=== PATIENT | female | born 1960 | race African-American/Black ===

== ENCOUNTER 2018-07-27 13:15 | Emergency (ER) | payer SELFPAY ==
[2018-07-27 13:47] LABS: #Basophils 0.3 thou/uL (0.0-0.2); #Lymphocytes 1.9 thou/uL (1.20-3.40); #Monocytes 0.6 thou/uL (0.11-0.59); #Neutrophils 6.9 thou/uL (1.40-6.50); %Basophils 2.6 % (0.0-1.0); %Eosinophils 0.4 % (0.0-10.0); %Lymphocytes 19.6 % (21.0-51.0); %Monocytes 6.6 % (0.0-10.0); %Neutrophils 70.9 % (42.0-75.0); Hemoglobin 8.2 g/dL (12.0-16.0); Mean Corpuscular HGB CONC 33.5 g/dL (32.0-36.0); Mean Corpuscular Hemoglobin 25.7 pg (27.0-31.0); Mean Corpuscular Volume 76.7 fL (78.0-98.0); Mean Platelet Volume 6.1 fL (7.4-10.4); Platelet Count 371 thou/uL (130-400); Red Blood Cell (RBC) Count 3.17 mill/uL (4.20-5.40); White Blood Cell (WBC) Count 9.8 thou/uL (4.8-10.8)
[2018-07-27 14:00] LABS: ALT (SGPT) Less than 7 U/L (8-55); AST (SGOT) 15 U/L (5-34); Albumin 3.7 g/dL (3.5-5.0); Alcohol 22 mg/dL (Less than 10); Alkaline Phosphatase 111 U/L (40-150); Anion Gap 22 mmol/L (10-20); BUN (Urea Nitrogen) 8 mg/dL (9.8-20.1); Bilirubin, Total 0.9 mg/dL (0.2-1.2); Calc. Creatinine Clearance 0 mL/min (70-130); Calcium 10.5 mg/dL (7.8-10.44); Carbon Dioxide 19 mmol/L (22-29); Chloride 100 mmol/L (98-107); Estimated GFR-MDRD 88; Globulin 4.7 g/dL (2.4-3.5); Glucose 105 mg/dL (70-105); Potassium 3.2 mmol/L (3.5-5.1); Protein, Total 8.4 g/dL (6.0-8.3); Sodium 138 mmol/L (136-145)
[2018-07-27 14:01] LABS: CKMB 0.5 ng/mL (0-6.6)
[2018-07-27] MEDS ORDERED: Phenytoin Sodium 100 MG/2 ML VIAL ONE (16:09)
--- NOTE | 2018-07-27 17:42 | CT ---
CT OF THE THORAX WITH CONTRAST 07/27/18 Comparison is made with the CT angio of chest dated 09/09/15. Axial slices were acquired, then coronal and sagittal reconstructions were done. This examination shows multiple pulmonary masses bilaterally consistent with diffuse metastatic disea se. Some of the larger masses measured 2.4 cm in the right upper lobe and about 2 cm in the left lowe r lobe. Many masses are spiculated. The background of the lungs is that of diffuse severe emphysemato us change. In addition, there is massive superior mediastinal adenopathy. There is also adenopathy around the ar ea of the right hilum. Lesser amounts of enlarged nodes are also seen around the left hilum. The heart showed no pericardial fluid or enlargement. There is good opacification of the pulmonary ar teries with no internal defect to suggest emboli. Scans went several centimeters down into the upper abdomen. There is a 1.7 cm left adrenal mass which is most likely metastatic in nature. While difficult to be certain, the main pancreatic duct seems r ather prominent in size and the pancreas itself is rather atrophic. I cannot see the pancreatic head to assess it at all. The visible portions of the liver showed no hepatic masses. IMPRESSION: 1. Multiple pulmonary masses, some of which are spiculated, consistent with metastatic disease. 2. Massive mediastinal and hilar adenopathy. 3. Left adrenal mass. 4. Possibly a mildly dilated pancreatic duct. The organ was not seen fully. Findings discussed with Dr. Stephenson at 1519 on 07/27/18. POS: HOME
--- NOTE | 2018-07-27 17:47 | CT ---
CT OF THE BRAIN WITH CONTRAST: 07/27/18 Computed tomography of the brain was done with IV contrast given the history of a pulmonary mass. The patient presented today with syncope. Axial slices were acquired, then coronal and sagittal reconstr uctions were done. The ventricles are normal in size and show no shift. No intracranial bleeding was present. There is a n area of vascular enhancement in the posterior inferior left cerebellar hemisphere. Statistically, t he finding is most likely to be due to either a vascular mass or a vascular malformation. Given the e vidence of metastatic disease in the chest, a very vascular mass seems most likely. There is not much edema around it. No intracranial bleeding was seen. IMPRESSION: Small 1 cm area of enhancement in the left posterior inferior cerebellar hemisphere. Most likely a va scular mass. Findings discussed with Dr. Stephenson at 1519 on 07/27/18. POS: HOME
== END 2018-07-27 16:32 | disposition short-term general hospital (02) ==
LOC: BURERS 13:15
DX: D50.9 Iron deficiency anemia, unspecified (principal); R79.89 Other specified abnormal findings of blood chemistry; C34.90 Malignant neoplasm of unspecified part of unspecified bronchus or lung; F17.210 Nicotine dependence, cigarettes, uncomplicated
CPT/HCPCS: 36415; 70470; 71260; 80053; 80307; 82553; 84484; 85025; 93005; 94760; 96374; J1165